=== PATIENT | male | born 1940 | race African-American/Black ===

== ENCOUNTER 2016-05-07 21:08 | Emergency (ER) | payer MEDICARE, MEDICAID ==
[~2016-05-07] VITALS: Ht 172.7 cm; Wt 117.0 kg
[~2016-05-07 21:08] MED LIST: ASPI-1035 PO; CALC-885 PO; DUREZOL LEFTEYE; FURO20TA4 PO; HAWT150C PO; LISI-604 PO; PRED1DRO LEFTEYE; PRED1DRO RIGHTEYE; [UNRECOGNIZED DRUG - CODE] PO
[2016-05-08 00:43] VITALS: BP 144/78
== END 2016-05-08 00:47 | disposition home or self-care (01) ==
LOC: ER 21:09
DX: R21 Rash and other nonspecific skin eruption (principal)
CPT/HCPCS: 99281

== ENCOUNTER 2016-07-13 18:34 | Emergency (ER) | payer MEDICARE, MEDICAID ==
[~2016-07-13] VITALS: Ht 172.7 cm; Wt 118.0 kg
[2016-07-13 20:14] VITALS: BP 122/67
[2016-07-13] MEDS ORDERED: DIPHENHYDRAMINE 50MG/ML VIAL IM ONE (21:30)
== END 2016-07-13 22:45 | disposition home or self-care (01) ==
LOC: ER 20:41
DX: L40.9 Psoriasis, unspecified (principal); L21.9 Seborrheic dermatitis, unspecified; I10 Essential (primary) hypertension; Z79.82 Long term (current) use of aspirin; I25.2 Old myocardial infarction; Z98.890 Other specified postprocedural states
CPT/HCPCS: 96372; 99283; J1200

== ENCOUNTER → 2017-01-09 | Outpatient (CLI) | payer MEDICARE, MEDICAID ==
[~2017-01-09] MED LIST changes: -ASPI-1035 PO; +ASPI-1159 PO; +CALC-30 PO; -CALC-885 PO
[2017-01-09 12:12] LABS: BASOPHILS % 0.8 % (0.0-2.0); EOSINOPHILS % 5.4 % (0.0-5.0); HEMATOCRIT. 39.1 % (42.0-52.0); HEMOGLOBIN. 12.8 g/dL (14.0-18.0); MEAN CORPUSCULAR HEMOGLOBIN 28.9 pg (28.0-32.0); MEAN CORPUSCULAR VOLUME 88.1 fL (80.0-94.0); MEAN PLATELET VOLUME 9.4 fl (7.4-10.4); MONOCYTES % 10.8 % (2.0-8.0); PLATELET 197 x1000/uL (130-400); RED BLOOD CELL COUNT 4.44 mill/uL (4.7-6.1); RED CELL DISTRIBUTION WIDTH 13.5 % (11.6-14.6)
[2017-01-09 12:50] LABS: CARBON DIOXIDE 28 mEq/L (21-32); CHLORIDE 105 mEq/L (98-107); HDL CHOLESTEROL 50 mg/dL (40-59); LDL CHOLESTEROL 113 mg/dL (5-100)
== END | disposition home or self-care (01) ==
LOC: LAB 11:26
PROVIDERS: ATTEND Internal Medicine Nephrology
DX: E66.9 Obesity, unspecified (principal); R97.20 Elevated prostate specific antigen [PSA]; Z79.82 Long term (current) use of aspirin; I10 Essential (primary) hypertension
CPT/HCPCS: 36415; 80053; 80061; 84153; 84443; 85025

== ENCOUNTER → 2017-06-05 | Outpatient (CLI) | payer MEDICARE, MEDICAID ==
[2017-06-05 11:10] LABS: BASOPHILS % 0.8 % (0.0-2.0); EOSINOPHILS % 3.7 % (0.0-5.0); HEMATOCRIT. 36.9 % (42.0-52.0); LYMPHOCYTES % 34.2 % (20.0-50.0); MEAN CORPUSCULAR HEMOGLOBIN 28.4 pg (28.0-32.0); MEAN CORPUSCULAR VOLUME 87.1 fL (80.0-94.0); MEAN PLATELET VOLUME 9.3 fl (7.4-10.4); MONOCYTES % 12.9 % (2.0-8.0); NEUTROPHILS % 48.4 % (40.0-76.0); PLATELET 208 x1000/uL (130-400); RED BLOOD CELL COUNT 4.24 mill/uL (4.7-6.1); RED CELL DISTRIBUTION WIDTH 14.1 % (11.6-14.6)
[2017-06-05 11:18] LABS: CHLORIDE 106 mEq/L (98-107)
[2017-06-05 11:26] LABS: HDL CHOLESTEROL 56 mg/dL (40-59)
[2017-06-05 11:28] LABS: LDL CHOLESTEROL 89 mg/dL (5-100)
== END | disposition home or self-care (01) ==
LOC: LAB 10:32
PROVIDERS: ATTEND Internal Medicine Nephrology
DX: I10 Essential (primary) hypertension (principal); E66.9 Obesity, unspecified; R79.89 Other specified abnormal findings of blood chemistry; Z79.82 Long term (current) use of aspirin
CPT/HCPCS: 36415; 80053; 80061; 83036; 85025

== ENCOUNTER → 2017-10-13 | Outpatient (CLI) | payer MEDICARE, MEDICAID ==
[2017-10-13 11:38] LABS: CHLORIDE 106 mEq/L (98-107)
[2017-10-13 11:44] LABS: LDL CHOLESTEROL 104 mg/dL (5-100)
[2017-10-13 11:46] LABS: HDL CHOLESTEROL 57 mg/dL (40-59)
== END | disposition home or self-care (01) ==
LOC: RAD 10:53
PROVIDERS: ATTEND Internal Medicine Nephrology
DX: I10 Essential (primary) hypertension (principal); E66.9 Obesity, unspecified
CPT/HCPCS: 36415; 80048; 80061; 83036; 84153; G0103